=== PATIENT | female | born 1935 | race Hispanic/Latino ===

== ENCOUNTER 2018-02-10 16:31 | Emergency (ER) | payer MEDICARE, OTHER ==
--- NOTE | 2018-02-10 16:39 | Emergency Department Report ---
HPI - General Time Seen by Provider: 02/10/18 16:37 - HPI HPI: 83-year-old female presents to the emergency department by EMS for some concerns for dehydration and/or weakness. 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 At one point the patient was standing there and started looking weak and was leaning against the wall to hold herself up. She denies any chest pain, shortness of breath, fever, nausea, vomiting, dysuria. She does have a productive sounding cough that she says has been going on for "a while." She has a history of CHF with a pacemaker, CVA, and had a LA 6 weeks ago for which she went to [facility] in [place]. Her emulsification operator is Dr. Garcias and her primary care physician is a Dr. Joyce. She did not receive anything in route prior to presentation. ED Past Medical Hx - Past Medical History Hx Hypertension: Yes Hx GERD: Yes Hx Renal Disease: Yes (elevated creatinine) Hx Arthritis: Yes Hx COPD: Yes (Sp02 94% on room air) - Surgical History Hx Breast Surgery: Yes (lumpectomy) - Social History Smoking Status: Current Some Day Smoker - Medications Home Medications: Home Medications Medication Instructions Recorded Confirmed Last Taken Type Acetaminophen [Acetaminophen TAB] 500 mg PO PRN PRN 08/31/14 10/14/14 09/16/14 History 500mg Amiodarone [Cordarone 200 MG TAB] 200 mg PO DAILY 08/31/14 10/14/14 10/13/14 History 200mg Atorvastatin [Lipitor] 20 mg PO QPM 08/31/14 10/14/14 10/13/14 History 20mg Dabigatran [Pradaxa] 75 mg PO BID 08/31/14 10/14/14 10/14/14 History 75mg Esomeprazole Magnesium [NexIUM] 40 mg PO DAILY 08/31/14 10/14/14 10/14/14 History 40mg Hydrochlorothiazide [HCTZ] 25 mg PO PRN PRN 08/31/14 10/14/14 10/07/14 History 25mg Metoprolol [Lopressor TAB] 25 mg PO BID 08/31/14 10/14/14 10/14/14 History 25mg ED Review of Systems ROS: Stated complaint: DEHYDRATED Other details as noted in HPI Comment: All other systems reviewed and negative Constitutional: weakness. denies: fever Eyes: denies: eye pain, eye discharge, vision change ENT: denies: ear pain, throat pain Respiratory: cough. denies: shortness of breath Cardiovascular: denies: chest pain, palpitations Gastrointestinal: denies: abdominal pain, nausea, diarrhea Genitourinary: denies: urgency, dysuria, discharge Musculoskeletal: denies: back pain, joint swelling, arthralgia Skin: denies: rash, lesions Neurological: weakness. denies: headache, numbness Physical Exam - Physical Exam Physical Exam: GENERAL: The patient is well-developed well-nourished. HENT: Normocephalic. Atraumatic. Patient has moist mucous membranes. EYES: Extraocular motions are intact. Pupils equal reactive to light bilaterally. No nystagmus. NECK: Supple. Trachea is midline. CHEST/LUNGS: Clear to auscultation. Occasionally the patient had a productive sounding cough. There is no respiratory distress noted. HEART/CARDIOVASCULAR: Regular. There is no tachycardia. There is no murmur. ABDOMEN: Abdomen is soft, nontender. Patient has normal bowel sounds. There is no abdominal distention. SKIN: Skin is warm and dry. NEURO: The patient is awake, alert, and oriented. The patient is cooperative. The patient has no focal neurologic deficits. The patient has normal speech. Cranial nerves II through XII grossly intact. MUSCULOSKELETAL: There is no tenderness or deformity. There is no limitation range of motion. There is no evidence of acute injury. ED Medical Decision Making - Lab Data Result diagrams: 02/10/18 16:50 02/10/18 16:50 - EKG Data -: EKG Interpreted by Me - EKG Data When compared to previous EKG there are: previous EKG unavailable Interpretation: other (ventricular paced, borderline left axis deviation, PVCs, no ST elevation LA) - Radiology Data Radiology results: image reviewed interpreted by me: Chest x-ray does not show any acute process. There are no pleural effusions, obvious pneumonia and there is no pneumothorax. - Medical Decision Making The patient was reevaluated multiple times over multiple hours and has remained stable. She has no complaints and is asking for discharge home. Labs were unremarkable except for a hyperkalemia of 5.5 that was treated with low-dose Kayexalate. EKG did not show any signs of ST elevation LA. She had negative troponins 2. Vital signs stable throughout her ED course. She was given some IV fluid for their concern for dehydration. At the end of the ED workup, the patient was seen ambulating around the emergency department and appeared stable while doing so. She has good follow-up with both primary care and cardiology. From this reason she appears safe for discharge home at this time but has been encouraged to return to the emergency department with any worsening of her symptoms or any acute distress. - Differential Diagnosis dehydration, UTI, dysrhythmia, LA Critical Care Time: No Critical care attestation.: If time is entered above; I have spent that time in minutes in the direct care of this critically ill patient, excluding procedure time. ED Disposition Clinical Impression: Hyperkalemia, Mild dehydration Disposition: DC-01 TO HOME OR SELFCARE Is pt being admited?: No Condition: Stable Instructions: Dehydration (ED), Hyperkalemia (ED) Additional Instructions: Please follow up with your primary care physician in the next few days. Return to the emergency Department with any worsening of your symptoms or any acute distress. Referrals: EDWINA GARCIAS MD [Staff Physician] - 3-5 Days THANIA JOYCE MD [Referring] - 3-5 Days Time of Disposition: 21:41
[2018-02-10 17:04] LABS: Basophils # (Auto) 0.1 K/mm3 (0.0-0.1); Basophils % (Auto) 1.3 % (0.0-1.8); Eosinophils # (Auto) 0.1 K/mm3 (0.0-0.4); Eosinophils % (Auto) 1.2 % (0.0-4.3); Hematocrit 38.4 % (30.3-42.9); Hemoglobin 11.6 gm/dl (10.1-14.3); Lymphocytes # (Auto) 1.8 K/mm3 (1.2-5.4); Lymphocytes % (Auto) 21.6 % (13.4-35.0); Mean Corpuscular HGB Conc 30 % (30-34); Mean Corpuscular Hemoglobin 27 pg (28-32); Mean Corpuscular Volume 88 fl (79-97); Monocytes # (Auto) 0.8 K/mm3 (0.0-0.8); Monocytes % (Auto) 9.1 % (0.0-7.3); Platelet Count 232 K/mm3 (140-440); Red Blood Count 4.37 M/mm3 (3.65-5.03)
[2018-02-10 17:05] LABS: Red Cell Distribution Width 24.6 % (13.2-15.2)
[2018-02-10 17:29] LABS: Alanine Aminotransferase 9 units/L (7-56); Albumin 3.1 g/dL (3.9-5); BUN/Creatinine Ratio 23; Blood Urea Nitrogen 14 mg/dL (7-17); Calcium 9.2 mg/dL (8.4-10.2); Hemolysis Index 22
[2018-02-10] MEDS ORDERED: KIONEX PO ONE (17:48)
--- NOTE | 2018-02-10 17:59 | XRay Report ---
FINAL REPORT EXAM: XR CHEST 1V AP HISTORY: Chest Pain TECHNIQUE: Single AP chest PRIORS: None. FINDINGS: Cardiac silhouette is moderately enlarged. There is single lead pacemaker present. No focal pulmonary infiltrate is identified. No pleural fluid collection is seen. Pulmonary vasculature is unremarkable. The lungs are hyperinflated bilaterally with flattening of the diaphragm suggestive of underlying COPD. IMPRESSION: Cardiomegaly and pacemaker Findings suggestive of underlying COPD Otherwise no acute findings
[2018-02-10] MEDS ORDERED: NACL 0.9% 500 ML 500 ML IV ONE (18:13)
[2018-02-10 18:23] LABS: Bilirubin,Urine NEG (Negative); Blood,Urine NEG (Negative); Color,Urine Yellow (Yellow); Mucus,Urine FEW /HPF; Protein,Urine <15 mg/dL mg/dL (Negative)
[2018-02-10] MEDS ORDERED: NACL 0.9% 250ML 250 ML IV ONE (18:24)
[2018-02-10 20:33] VITALS: BP 128/72
== END 2018-02-10 22:30 | disposition home or self-care (01) ==
LOC: ED 16:31
DX: E87.5 Hyperkalemia (principal); E86.0 Dehydration; I10 Essential (primary) hypertension; K21.9 Gastro-esophageal reflux disease without esophagitis; M19.90 Unspecified osteoarthritis, unspecified site; J44.9 Chronic obstructive pulmonary disease, unspecified; F17.200 Nicotine dependence, unspecified, uncomplicated
CPT/HCPCS: 36415; 71045; 80053; 80162; 81001; 84484; 85025; 93005; 93010; 96360; 99285; J7050